=== PATIENT | female | born 1995 | race African-American/Black ===

== ENCOUNTER 2017-01-27 11:04 | Emergency (ER) | payer OTHER ==
--- NOTE | ~2017-01-27 | EKG ---
PATIENT: JOVANNY PARDO UNIT #: [id number] Ventricular Rate: 89 BPM Atrial Rate: 89 BPM P-R Interval: 160 ms QRS Duration: 78 ms Q-T Interval: 344 ms QTC Calculation(Bezet): 418 ms P [place]: 49 degrees Calculated R [place]: 25 degrees Calculated T [place]: 38 degrees Diagnosis Line: Normal sinus rhythm Diagnosis Line: Normal ECG Diagnosis Line: No previous ECGs available Diagnosis Line: Confirmed by MARICEL DUKE MD ([id number]) on Diagnosis Line: 01/28/2017 8:01:32 AM INTERPRETING MD: LEILANI DAY
[~2017-01-27 11:04] MED LIST: MED FOR SLEEP
== END 2017-01-27 11:13 | disposition home or self-care (01) ==
LOC: CED 11:04
DX: R07.89 Other chest pain (principal)
CPT/HCPCS: 93005; 99283